=== PATIENT | female | born 1965 | race Caucasian/White ===

== ENCOUNTER 2024-02-06 21:34 | Emergency (ER) | payer OTHER ==
[2024-02-06 21:54] VITALS: BP 152/70; PULSE 65; RESP 18; TEMP 97.2; BMI 31.1
[2024-02-06] MEDS ORDERED: ONDANSETRON 4 MG/2 ML VIAL ONE (22:19)
[2024-02-06] MEDS ORDERED: KETOROLAC TROMETHAMINE 30 MG/1 ML VIAL ONE (22:19)
[2024-02-06] MEDS: morphine CARPU-JECT 2 MG/1 ML DISP.SYRIN IVPUSH ONE (22:24)
[2024-02-06] MEDS: SODIUM CHLORIDE 1,000 ML IV ONE (22:25)
[2024-02-06] MEDS: KETOROLAC TROMETHAMINE 30 MG/1 ML VIAL IVPUSH ONE (22:25)
[2024-02-06] MEDS: ONDANSETRON 4 MG/2 ML VIAL IVPB ONE (22:26)
[2024-02-06 22:29] LABS: HEMATOCRIT 44.9 % (32.4-45.2); HEMOGLOBIN 14.5 G/dL (10.7-15.3); MCH 29.5 pg (25.7-33.7); MCHC 32.3 g/dl (32.0-36.0); MEAN CELL VOLUME 91.5 fl (80-96); MEAN PLT VOLUME 7.6 fl (7.5-11.1); PLATELET COUNT 333.4 10^3/uL (134-434); RBC 4.91 10^6/uL (3.60-5.2); RDW 13.8 % (11.6-15.6); WHITE BLOOD COUNT 12.2 10^3/uL (4.0-10.8)
[2024-02-06 23:11] LABS: CREATININE 0.7 mg/dl (0.6-1.3)
[2024-02-06 23:12] LABS: POTASSIUM 4.3 mmol/L (3.5-5.1)
[2024-02-06 23:13] LABS: MAGNESIUM 1.9 mg/dL (1.8-2.4); PHOSPHOROUS 3.5 (2.5-4.9)
[2024-02-06 23:14] LABS: ALBUMIN 4.6 g/dl (3.4-5.0); BILIRUBIN,TOTAL 4.6 mg/dl (0.2-1); TOT PROT 7.7 g/dl (6.4-8.2)
[2024-02-06 23:25] LABS: INR 1.07 (0.83-1.09); PROTHROMBIN TIME (PATIENT) 12.2 SEC (9.7-13.0)
== END 2024-02-07 01:33 | disposition home or self-care (01) ==
LOC: FER 21:34
PROC: 3E0333Z Introduction of Anti-inflammatory into Peripheral Vein, Percutaneous Approach (ICD-10-PCS; principal; 2024-02-06)
PROC: 3E033NZ Introduction of Analgesics, Hypnotics, Sedatives into Peripheral Vein, Percutaneous Approach (ICD-10-PCS; 2024-02-06)
PROC: 3E033GC Introduction of Other Therapeutic Substance into Peripheral Vein, Percutaneous Approach (ICD-10-PCS; 2024-02-06)
PROC: 3E0337Z Introduction of Electrolytic and Water Balance Substance into Peripheral Vein, Percutaneous Approach (ICD-10-PCS; 2024-02-06)
DX: R10.11 Right upper quadrant pain (principal); R11.0 Nausea
CPT/HCPCS: 36415; 76705-TC; 80053; 82550; 83605; 83735; 84100; 84484; 85027; 85610; 86850; 86900; 86901; 93005; 99285-25